=== PATIENT | female | born 1980 | race Caucasian/White ===

== ENCOUNTER 2018-04-23 16:56 | Emergency (ER) | payer MEDICARE, MEDICAID ==
[2018-04-23 19:42] VITALS: BP 113/60
--- NOTE | 2018-04-23 20:20 | EDM.PDOC ---
ED HPI GENERAL MEDICAL PROBLEM - General Chief Complaint: Lower Extremity Injury/Pain Stated Complaint: LEFT LEG SORE, BLOOD CLOT Time Seen by Provider: 04/23/18 19:35 Source of Information: Reports: Patient History Limitations: Reports: No Limitations - History of Present Illness INITIAL COMMENTS - FREE TEXT/NARRATIVE: 38-year-old female who recently had an MRI on her left ankle because of her persistent nonhealing ulceration on the medial aspect of the ankle in a surgical scar is now developed redness and tenderness in the medial aspect of her left thigh 3 days after the procedure. She has a low-grade fever and the area is slightly warm to touch. Onset: Gradual (Over the past 1-2 days) Severity: Mild Left Upper Leg Pain Score (Numeric/FACES): 7 - Related Data Allergies Allergy/AdvReac Type Severity Reaction Status Date / Time amoxicillin Allergy Cannot Verified 04/23/18 19:31 Remember Penicillins Allergy Cannot Verified 04/23/18 19:31 Remember Home Meds: Home Meds Acetaminophen [Mapap] 650 mg PO Q6H PRN 04/24/15 [History] Cetirizine [ZyrTEC] 10 mg PO DAILY 04/24/15 [History] Levothyroxine [Levothroid] 175 mcg PO DAILY 04/24/15 [History] medroxyPROGESTERone [Depo-Provera Contraceptive] 150 mg IM ONETIME 04/25/15 [ History] Past Medical History HEENT History: Reports: Impaired Vision [employer] History: Reports: , Spontaneous Endocrine/Metabolic History: Reports: Hypothyroidism Other Dermatologic History: falliculitis - Infectious Disease History Infectious Disease History: Reports: Chicken Pox - Past Surgical History Female Surgical History: Reports: Section Musculoskeletal Surgical History: Reports: Other (See Below) Other Musculoskeletal Surgeries/Procedures:: left ankle fracture fusion l ankle blood clot l thigh 2014 Social & Family History - Tobacco Use Smoking Status *Q: Current Every Day Smoker Years of Tobacco use: 18 Packs/Tins Daily: 0.5 Used Tobacco, but Quit: No Second Hand Smoke Exposure: Yes - Caffeine Use Caffeine Use: Reports: Coffee, Soda - Alcohol Use Days Per Week of Alcohol Use: 0 - Recreational Drug Use Recreational Drug Use: No Review of Systems - Review of Systems Review Of Systems: See Below Constitutional: Reports: Fever Respiratory: Denies: Shortness of Breath Cardiovascular: Denies: Chest Pain GI/Abdominal: Denies: Abdominal Pain Skin: Reports: Erythema ED EXAM, GENERAL - Physical Exam Exam: See Below Exam Limited By: No Limitations General Appearance: Alert, No Apparent Distress Respiratory/Chest: No Respiratory Distress, Lungs Clear Cardiovascular: Regular Rate, Rhythm. No: Tachycardia Extremities: Other (Exam is otherwise limited to the lower extremities. She does have a 6 x 9 cm area of erythema on the medial aspect of the upper left thigh which is slightly warm to touch and sore. No popliteal tenderness, gastrocnemius tenderness and no distal edema. She does have a bandage over a 2 cm ulceration that does not appear to be infected over the medial ankle.) Course - Vital Signs Last Recorded V/S: Last Vital Signs Temp 100.6 F 04/23/18 19:40 Pulse 80 04/23/18 19:40 Resp 16 04/23/18 19:40 BP 113/60 04/23/18 19:40 Pulse Ox 97 04/23/18 19:40 - Re-Assessments/Exams Free Text/Narrative Re-Assessment/Exam: 04/23/18 20:18 This likely is a superficial thrombophlebitis but may have a component of cellulitis. DVT is very unlikely. She has been waiting for a period of time to be seen, she does not want awaiting a longer for an ultrasound which I think is reasonable. She'll be started on cephalexin 500 mg 3 times a day and if she starts developing lower extremity edema or increased pain in her thigh or popliteal area she'll return for an ultrasound. Departure - Departure Time of Disposition: 20:30 Disposition: Home, Self-Care 01 Condition: Good Clinical Impression: Cellulitis of left leg - Discharge Information Instructions: Cellulitis, Adult, [id number] Referrals: PCP,None [Primary Care Provider] - Forms: ED Department Discharge Care Plan Goals: Take antibiotic 3 times a day until gone. Warm compresses to the area will help clear the infection or phlebitis. Anti-inflammatory such as ibuprofen or naproxen can help. Recheck in 4-6 days if not improving satisfactorily, or return anytime if worsening despite treatment.
== END 2018-04-23 20:30 | disposition home or self-care (01) ==
LOC: JP.ED 16:56
DX: L03.116 Cellulitis of left lower limb (principal); F17.210 Nicotine dependence, cigarettes, uncomplicated; E03.9 Hypothyroidism, unspecified; Z79.899 Other long term (current) drug therapy; Z88.0 Allergy status to penicillin; Z88.1 Allergy status to other antibiotic agents
CPT/HCPCS: 99283